=== PATIENT | male | born 1985 | race Caucasian/White ===

== ENCOUNTER 2016-11-22 22:19 | Emergency (ER) | payer OTHER ==
[2016-11-22 23:20] LABS: BASOPHIL % 0.1 % (0-2); PLATELET COUNT 262 x10^3mcL (130-400); RED CELL DISTRIBUTION WIDTH 12.7 % (11.5-14.5)
[2016-11-22 23:37] LABS: CALCIUM 9.2 mg/dL (8.5-10.1); CARBON DIOXIDE 25.7 mmol/L (21-32); CHLORIDE SERUM 101 mmol/L (98-107); CREATININE SERUM 1.6 mg/dL (0.7-1.3); GFR1 53 mL/min; GLUCOSE SERUM 109 mg/dL (74-106); SODIUM SERUM 139 mmol/L (136-145)
[2016-11-22 23:42] LABS: ALBUMIN 4.5 g/dL (3.4-5.0); ALKALINE PHOSPHATASE 79 U/L (46-116); ALT/SGPT 23 U/L (16-63); AST/SGOT 29 U/L (15-37); BILIRUBIN TOTAL 0.84 mg/dL (0.20-1.00)
[2016-11-22 23:46] LABS: TOTAL PROTEIN, SERUM 8.3 g/dL (6.4-8.2)
[2016-11-23 00:45] LABS: AMPHETAMINE QUAL UR POSITIVE (NEG <=1000)
[2016-11-23 05:35] VITALS: BP 122/84
== END 2016-11-23 05:35 | disposition home or self-care (01) ==
LOC: ED 22:19 → EDBD 22:19 → ED 11-23 05:35
PROVIDERS: Emergency Medicine
DX: T43.621A Poisoning by amphetamines, accidental (unintentional), initial encounter (principal); R41.0 Disorientation, unspecified; Y92.89 Other specified places as the place of occurrence of the external cause
CPT/HCPCS: 36415; G0480; J2060